=== PATIENT | male | born 1955 | race Caucasian/White ===

== ENCOUNTER 2023-12-17 20:09 | Outpatient (CLI) | payer MEDICARE, SELFPAY | END 2023-12-17 20:10 | disposition home or self-care (01) | LOC: SLEEP 20:18 | PROVIDERS: PCP Internal Medicine; Visit Provider Internal Medicine | DX: G47.33 Obstructive sleep apnea (adult) (pediatric) (principal) | CPT/HCPCS: 95806 ==